=== PATIENT | female | born 1970 | race Caucasian/White ===

== ENCOUNTER 2016-12-19 15:15 | Emergency (ER) | payer OTHER ==
[2016-12-19] MEDS ORDERED: METOCLOPRAMIDE 5 MG/ML 2 ML VIAL IVP STA (15:23)
[2016-12-19] MEDS ORDERED: diphenhydrAMINE 50 MG/ML 1 ML VIAL IVP STA (15:23)
[2016-12-19] MEDS ORDERED: SODIUM CHLORIDE 0.9% 1,000 ML IV STA (15:23)
[2016-12-19 15:36] VITALS: RESP 18
--- NOTE | 2016-12-19 15:37 | ED ---
General Adult HPI - General Chief complaint: Nausea/Vomiting/Diarrhea Stated complaint: Vomiting Time Seen by Provider: 12/19/16 15:18 Source: EMS, RN notes reviewed Mode of arrival: EMS Limitations: no limitations - History of Present Illness Initial comments: 44-year-old male presents to the emergency department with a chief complaint of headache. Patient states she's had a headache for the past 2 days that has been worsening. Patient states she has nausea and vomiting associated that she states that she thought she saw blood in her vomit there is no coffee-ground emesis no blood clots. Patient states that she does get headaches that she takes Fioricet for them but it was not helping today. Patient states she is concerned due to the headache and the nausea as well as light activity so she thought that she should be evaluated. Patient states she is not currently having any other symptoms at this time. Patient denies any recent fever, chills , shortness of breath, chest pain, back pain, abdominal pain, numbness or tingling, dysuria or hematuria, constipation or diarrhea, visual changes, or any other current symptoms. - Related Data Home Medications Medication Instructions Recorded Confirmed Allopurinol [Allopurinol] 100 mg PO DAILY 12/12/15 12/19/16 Hydrocodone/Acetaminophen 1 tab PO QID PRN 12/12/15 12/19/16 [Hydrocodon-Acetaminophn 10-325] Ibuprofen [Motrin] 800 mg PO TID 12/12/15 12/19/16 Albuterol Inhaler [Ventolin Hfa 2 puff INHALATION RT-Q4H PRN 12/19/16 12/19/16 Inhaler] Butalbit/Acetamin/Caff/Codeine 1 cap PO Q12H PRN 12/19/16 12/19/16 [Fioricet-Cod 52-551-79-30 Cap] Famotidine [Pepcid] 20 mg PO BID 12/19/16 12/19/16 Gabapentin [Neurontin] 300 mg PO TID 12/19/16 12/19/16 Levothyroxine Sodium [Synthroid] 50 mcg PO DAILY 12/19/16 12/19/16 Lisinopril [Zestril] 20 mg PO DAILY 12/19/16 12/19/16 Morphine Sulfate ER [Ms Contin 30 mg PO Q12HR 12/19/16 12/19/16 30Mg] buPROPion HCL [Wellbutrin SR] 150 mg PO BID 12/19/16 12/19/16 busPIRone HCL 15 mg PO DAILY 12/19/16 12/19/16 Allergies Allergy/AdvReac Type Severity Reaction Status Date / Time Penicillins Allergy Unknown Verified 12/19/16 15:42 Review of Systems ROS Statement: Those systems with pertinent positive or pertinent negative responses have been documented in the HPI. ROS Other: All systems not noted in ROS Statement are negative. Past Medical History Past Medical History: Hyperlipidemia, Hypertension History of Any Multi-Drug Resistant Organisms: None Reported Past Surgical History: Ear Surgery, Tubal Ligation Additional Past Surgical History / Comment(s): SINUS Past Psychological History: Anxiety, Depression Smoking Status: Current every day smoker Past Alcohol Use History: None Reported Past Drug Use History: None Reported General Exam - General Exam Comments Initial Comments: General: The patient is awake and alert, in no distress, and does not appear acutely ill. Eye: Pupils are equal, round and reactive to light, extra-ocular movements are intact; there is normal conjunctiva bilaterally. No signs of icterus. Ears, nose, mouth and throat: There are moist mucous membranes. Neck: The neck is supple, there is no tenderness. Cardiovascular: There is a regular rate and rhythm. No murmur, rub or gallop is appreciated. Respiratory: Lungs are clear to auscultation, respirations are non-labored, breath sounds are equal. No wheezes, stridor, rales, or rhonchi. Gastrointestinal: Soft, non-distended, non-tender abdomen without masses or organomegaly noted. There is no rebound or guarding present. No CVA tenderness. Bowel sounds are unremarkable. Back: There is no tenderness to palpation in the midline. There is no obvious deformity. No rashes noted. Musculoskeletal: Normal ROM, no tenderness, There is no pedal edema. There is no calf tenderness or swelling. Sensation intact. Pulses equal bilaterally 2+. Neurological: CN II-XII intact, There are no obvious motor or sensory deficits. Coordination appears grossly intact. Speech is normal. Skin: Skin is warm and dry and no rashes or lesions are noted. Psychiatric: Cooperative, appropriate mood & affect, normal judgment. Limitations: no limitations Course Vital Signs 12/19/16 12/19/16 15:19 17:22 Temperature 98.0 F 100.5 F H Pulse Rate 90 Respiratory 18 Rate Blood Pressure 127/91 145/82 O2 Sat by Pulse 98 Oximetry - Reevaluation(s) Reevaluation #1: 12/19/16 18:35 Case was discussed with Dr. Cuevas. EKG Findings - EKG Comments: EKG Findings:: normal sinus rhythm 76 bpm, normal axis, no atopy, no S-T depressions or elevations, Medical Decision Making - Medical Decision Making 46-year-old female presents to emergency Department chief complaint of headache. This time patient was found be hypokalemic and her potassium was replaced orally. EKG is reviewed as well. At this time the patient headache has improved with medication we did give her home pain medication as well. This and we discussed close follow-up with her doctor return parameters all questions. Patient stated that she understood and she is given the plan. This time she will be discharged. - Lab Data Result diagrams: 12/19/16 15:34 12/19/16 15:34 Lab Results 12/19/16 12/19/16 Range/Units 15:34 15:34 WBC 12.2 H (3.8-10.6) k/uL RBC 4.85 (3.80-5.40) m/uL Hgb 15.3 (11.4-16.0) gm/dL Hct 43.9 (34.0-46.0) % MCV 90.5 (80.0-100.0) fL MCH 31.6 (25.0-35.0) pg MCHC 34.9 (31.0-37.0) g/dL RDW 14.0 (11.5-15.5) % Plt Count 279 (150-450) k/uL Neutrophils % 85 % Lymphocytes % 11 % Monocytes % 3 % Eosinophils % 0 % Basophils % 0 % Neutrophils # 10.4 H (1.3-7.7) k/uL Lymphocytes # 1.3 (1.0-4.8) k/uL Monocytes # 0.3 (0-1.0) k/uL Eosinophils # 0.1 (0-0.7) k/uL Basophils # 0.0 (0-0.2) k/uL Sodium 140 (137-145) mmol/L Potassium 3.0 L* (3.5-5.1) mmol/L Chloride 103 (98-107) mmol/L Carbon Dioxide 25 (22-30) mmol/L Anion Gap 12 mmol/L BUN 9 (7-17) mg/dL Creatinine 0.90 (0.52-1.04) mg/dL Est GFR (MDRD) Af Amer >60 (>60 ml/min/1.73 sqM) Est GFR (MDRD) Non-Af >60 (>60 ml/min/1.73 sqM) Glucose 109 H (74-99) mg/dL Calcium 10.2 (8.4-10.2) mg/dL Total Bilirubin 0.6 (0.2-1.3) mg/dL AST 14 (14-36) U/L ALT 20 (9-52) U/L Alkaline Phosphatase 114 (38-126) U/L Total Protein 6.8 (6.3-8.2) g/dL Albumin 4.2 (3.5-5.0) g/dL Amylase 64 (30-110) U/L Lipase 35 (23-300) U/L Disposition Clinical Impression: Headache Disposition: HOME SELF-CARE Condition: Stable Instructions: Acute Headache (ED) Additional Instructions: Please use medication as discussed. Please follow up with family doctor if symptoms have not improved over the next two days. Please return to the emergency room if your symptoms increase or worsen or for any other concerns. Referrals: Aye Crawford MD [STAFF PHYSICIAN] - 1-2 days Time of Disposition: 18:35
[2016-12-19 15:49] LABS: Basophils % (A) 0 %; CH 31.9; CHCM 35.4; Eosinophils # (A) 0.1 k/uL (0-0.7); Eosinophils % (A) 0 %; HCT 43.9 % (34.0-46.0); HDW 2.62; HGB 15.3 gm/dL (11.4-16.0); Luc # (Auto) 0.08; Luc % (Auto) 1; Lymphocytes # (A) 1.3 k/uL (1.0-4.8); Lymphocytes % (A) 11 %; MCH 31.6 pg (25.0-35.0); MCHC 34.9 g/dL (31.0-37.0); MCV 90.5 fL (80.0-100.0); Mean Platelet Volume 7.2; Monocytes # (A) 0.3 k/uL (0-1.0); Monocytes % (A) 3 %; Neutrophils # (A) 10.4 k/uL (1.3-7.7); Neutrophils % (A) 85 %; RBC 4.85 m/uL (3.80-5.40); WBC 12.2 k/uL (3.8-10.6)
[2016-12-19 15:58] LABS: ALT 20 U/L (9-52); AST 14 U/L (14-36); Alkaline Phosphatase 114 U/L (38-126); Amylase 64 U/L (30-110); Anion Gap 12 mmol/L; Blood Urea Nitrogen 9 mg/dL (7-17); Calcium 10.2 mg/dL (8.4-10.2); Carbon Dioxide 25 mmol/L (22-30); Chloride 103 mmol/L (98-107); Glucose 109 mg/dL (74-99); Non-African American GFR(MDRD) >60 (>60 ml/min/1.73 sqM); Sodium 140 mmol/L (137-145); Total Bilirubin 0.6 mg/dL (0.2-1.3); Total Protein 6.8 g/dL (6.3-8.2)
--- NOTE | 2016-12-19 15:59 | XR ---
EXAMINATION TYPE: XR abdomen 2V DATE OF EXAM: 12/19/2016 HISTORY: Pain. Technique: 2 views of the abdomen are submitted. Comparison: None. Findings: There is no convincing evidence of pneumoperitoneum. The Bowel gas pattern is nonspecific and nonobstructive. No sizable air-fluid levels are seen. No mass effects are noted. No renal calcifications are identified. IMPRESSION: 1. Nonspecific nonobstructive bowel gas pattern
[2016-12-19] MEDS ORDERED: POTASSIUM CHLORIDE ORAL LIQUID 40 MEQ/30 ML CUP PO ONE ×2 (16:08→16:24)
[2016-12-19] MEDS ORDERED: KETOROLAC 30 MG/ML 1 ML VIAL IVP STA (16:33)
[2016-12-19] MEDS ORDERED: MORPHINE SULFATE 4 MG/ML SYRINGE IV STA (17:22)
[2016-12-19] MEDS ORDERED: HYDROcodone/APAP 5-325MG 1 EACH TAB PO STA (17:22)
[2016-12-19] MEDS ORDERED: HYDROmorphone 1 MG/ML 1 ML SYRINGE IVP STA (18:13)
[2016-12-19 18:47] VITALS: BP 135/89; PULSE 87; TEMP 98.9
== END 2016-12-19 18:48 | disposition home or self-care (01) ==
LOC: EC 15:15
DX: R51 Headache (principal); R11.2 Nausea with vomiting, unspecified; E87.6 Hypokalemia; I10 Essential (primary) hypertension; F41.9 Anxiety disorder, unspecified; F32.9 Major depressive disorder, single episode, unspecified; F17.200 Nicotine dependence, unspecified, uncomplicated; Z79.1 Long term (current) use of non-steroidal anti-inflammatories (NSAID); Z79.891 Long term (current) use of opiate analgesic; Z79.899 Other long term (current) drug therapy; Z88.0 Allergy status to penicillin
CPT/HCPCS: 36415; 93005; 80053; 82150; 83690; 85025; 74020; 99284; 96374; 96375 ×4; 96361; J2270; J1200; J2765; J1885; J1170

== ENCOUNTER → 2017-02-11 | Outpatient (CLI) | payer OTHER ==
--- NOTE | 2017-02-11 10:42 | CT ---
EXAMINATION TYPE: CT chest w con DATE OF EXAM: 02/11/2017 COMPARISON: NONE HISTORY: Lung Nodules CT DLP: 350.8 mGycm, Automated exposure control for dose reduction was used. CONTRAST: Performed injected with 100 mL of Omnipaque 300. TECHNIQUE: Axial images were obtained at 5 mm thick sections. Reconstructed images are reviewed on [employer] computer in the coronal plane. FINDINGS: Portion of the thyroid visualized is normal. There are several right middle lobe densities, series 4 image 39. A calcified granuloma measuring 0.4 cm is present. A pleural-based 0.4 cm lower density nodules. There is an oval density measuring 0.6 cm in length. There are 2 small further characterize. Short-term follow-up is recommended with CT [address] in 3-6 months. Should be confirmed as stable over the course of 2 years. No enlarged mediastinal or hilar adenopathy is evident. The ascending aorta diameter at the level o f the main pulmonary artery is 2.8 cm. The main pulmonary artery diameter at the bifurcation is 2.[address] sections are obtained through the upper abdomen. Abdomen is essentially unremarkable. IMPRESSIONS: 1. Couple of punctate densities within the periphery of the right middle lobe discussed above. Short- term follow-up CT chest without contrast can be performed in 3-6 months to confirm stability.
--- NOTE | 2017-02-19 08:53 | MM ---
Reason for exam: screening (asymptomatic). Last mammogram was performed 7 months ago. History: Patient is postmenopausal. Physical Findings: A clinical breast exam by your physician is recommended on an annual basis and results should be correlated with mammographic findings. MG Screening Mammo w CAD Bilateral CC and MLO view(s) were taken. Prior study comparison: July 11, 2016, mammogram, performed at [facility]. There are scattered fibroglandular densities. No significant changes when compared with prior studies. ASSESSMENT: Benign, BI-RAD 2 RECOMMENDATION: Routine screening mammogram of both breasts in 1 year.
== END | disposition home or self-care (01) ==
LOC: RADCTMAIN 09:42
PROVIDERS: ATTEND Family Medicine
DX: Z12.31 Encounter for screening mammogram for malignant neoplasm of breast (principal); R91.8 Other nonspecific abnormal finding of lung field
CPT/HCPCS: 71260; G0202; Q9967

== ENCOUNTER → 2018-12-02 | Outpatient (CLI) | payer OTHER ==
--- NOTE | 2018-12-02 10:21 | CT ---
EXAMINATION TYPE: CT chest w con DATE OF EXAM: 12/02/2018 COMPARISON: CT chest 02/11/2017 HISTORY: Lung nodules CT DLP: 344.4 mGycm Automated exposure control for dose reduction was used. CONTRAST: CT scan of the chest is performed with IV Contrast, patient injected with 100 mL of Isovue 300. FINDINGS: LUNGS: The lungs are stable, there is no concerning parenchymal mass or nodule identified, nodularity in the right middle and left lower lobes unchanged. There is no pleural effusion or pneumothorax s een. Subpleural nodularity in the right lower lobe possibly postinflammatory, is slightly more conspi cuous than on prior exam possibly due to differences in technique. The tracheobronchial tree is paten t. MEDIASTINUM: There are no greater than 1 cm hilar or mediastinal lymph nodes. No pericardial effusi on is seen. Some reflux of contrast material into the hepatic veins from the right atrium could be i ndicative of some right heart failure. AORTA: No additional significant abnormality is seen. OTHER: No additional significant abnormality is seen. IMPRESSION: Some slight increased prominence of the pleural nodularity as described of questionable clinical significance. Stable lung nodules, probable old granulomatous disease. Additional findings a [place].
== END | disposition home or self-care (01) ==
LOC: RADCTMAIN 07:22
PROVIDERS: ATTEND Internal Medicine
DX: R91.8 Other nonspecific abnormal finding of lung field (principal); J94.8 Other specified pleural conditions
CPT/HCPCS: 71260; Q9967